=== PATIENT | male | born 1970 | race Caucasian/White ===

== ENCOUNTER 2018-11-15 11:46 | Day surgery (SDC) | payer OTHER ==
[2018-11-10 10:45] LABS: ABSOLUTE LYMPHOCYTES (AUTO) 1.7 10^3/uL (0.5-4.7); ABSOLUTE MONOCYTES (AUTO) 0.4 10^3/uL (0.1-1.4); ABSOLUTE NEUT (AUTO) 6.2 10^3/uL (1.7-8.2); BASOPHILS % (AUTO) 0.6 % (0-2); EOSINOPHILS % (AUTO) 0.5 % (0-6); HEMATOCRIT 43.3 % (37.9-51.0); LYMPHOCYTES % (AUTO) 20.2 % (13-45); MEAN CORPUSCULAR HEMOGLOBIN 31.8 pg (27.0-33.4); MEAN CORPUSCULAR HGB CONC 34.7 g/dL (32.0-36.0); MEAN CORPUSCULAR VOLUME 92 fl (80-97); MONOCYTES % (AUTO) 4.5 % (3-13); PLATELET COUNT 252 10^3/uL (150-450); RED BLOOD COUNT 4.72 10^6/uL (4.35-5.55); RED CELL DISTRIBUTION WIDTH 13.2 % (11.5-14.0); SEGMENTED NEUTROPHILS % (AUTO) 74.2 % (42-78); TOTAL CELLS COUNTED % (AUTO) 100 %; WHITE BLOOD COUNT 8.4 10^3/uL (4.0-10.5)
[2018-11-10 11:02] LABS: ANION GAP 5 (5-19); BLOOD UREA NITROGEN 23 mg/dL (7-20); CALCIUM 9.5 mg/dL (8.4-10.2); CARBON DIOXIDE 25 mmol/L (22-30); CHLORIDE 110 mmol/L (98-107); GLUCOSE 104 mg/dL (75-110); POTASSIUM 4.9 mmol/L (3.6-5.0); SODIUM 140.3 mmol/L (137-145)
--- NOTE | 2018-11-10 12:37 | RADIOLOGY REPORT (SQ) ---
EXAM DESCRIPTION: CHEST PA/LATERAL COMPLETED DATE/TIME: 11/10/2018 10:29 am REASON FOR STUDY: UNILATERAL INGUINAL HERNIA, W/O OBST OR GANGRENE, RECURRENT COMPARISON: None. EXAM PARAMETERS: NUMBER OF VIEWS: two views TECHNIQUE: Digital Frontal and Lateral radiographic views of the chest acquired. RADIATION DOSE: NA LIMITATIONS: none FINDINGS: LUNGS AND PLEURA: No opacities, masses or pneumothorax. No pleural effusion. MEDIASTINUM AND HILAR STRUCTURES: No masses or contour abnormalities. HEART AND VASCULAR STRUCTURES: Heart normal size. No evidence for failure. BONES: No acute findings. HARDWARE: None in the chest. OTHER: No other significant finding. IMPRESSION: NO SIGNIFICANT RADIOGRAPHIC FINDING IN THE CHEST. TECHNICAL DOCUMENTATION: JOB ID: [id number] [employer]- All Rights Reserved Reading location - IP/workstation name: [email or web address]
--- NOTE | 2018-11-12 00:09 | EKG REPORT ---
SEVERITY:- NORMAL ECG - SINUS RHYTHM : Confirmed by: Ihsan Donaldson 12-Nov-2018 00:08:49
[~2018-11-15 11:46] MED LIST: LACTATED RINGERS 1000 ML IV PRN; LIDOCAINE 0.5% INJ-PF (5 MG/ML) 50 ML SDV SUBCUT PRN
[2018-11-15] MEDS ORDERED: CEFAZOLIN 2 GM/D5W RTU 2 GM/50 ML RTUPB IV ONE (13:09)
[2018-11-15] MEDS ORDERED: BUPIVACAINE HCL 0.25% /EPINEPHRINE INJ/PF 30 ML SDV ONE (13:39)
[2018-11-15] MEDS ORDERED: FENTANYL CITRATE INJ/PF 250 MCG/5 ML AMPULE ONE (14:01)
[2018-11-15] MEDS ORDERED: MIDAZOLAM 2 MG/2 ML INJ ONE (14:01)
[2018-11-15] MEDS ORDERED: PROPOFOL INJ 200 MG/20 ML VIAL IV ONE (14:01)
[2018-11-15] MEDS ORDERED: DIPHENHYDRAMINE HCL 50 MG/ML VIAL IV PRN (14:38)
[2018-11-15] MEDS ORDERED: OXYCODONE-ACETAMINOPHEN 5-325 MG TABLET PO PRN ×3 (14:38→15:59)
[2018-11-15] MEDS ORDERED: MORPHINE SULFATE 10 MG/ML INJ IV PRN (14:38)
[2018-11-15] MEDS ORDERED: FENTANYL CITRATE INJ/PF 100 MCG/2 ML AMPUL IV PRN ×3 (14:38)
[2018-11-15] MEDS ORDERED: MEPERIDINE HCL/PF INJ 25 MG/1 ML DISP.SYRIN IV PRN (14:38)
[2018-11-15] MEDS ORDERED: PROMETHAZINE HCL INJ 25 MG/1 ML VIAL IV PRN ×2 (14:38)
[2018-11-15] MEDS ORDERED: HYDROMORPHONE HCL INJ/PF 2 MG/ML AMPULE ONE (15:05)
[2018-11-15] MEDS ORDERED: PROMETHAZINE HCL INJ 25 MG/1 ML VIAL ONE (15:56)
--- NOTE | 2018-11-15 15:57 | Operative Report ---
Nonrecallable Operative Report DATE OF SURGERY: 11/15/18 PREOPERATIVE DIAGNOSIS: right inguinal hernia POSTOPERATIVE DIAGNOSIS: bilateral inguinal hernia OPERATION: laparoscopic bilateral inguinal hernia repair SURGEON: TAWANNA ORTEGA ANESTHESIA: GA TISSUE REMOVED OR ALTERED: none COMPLICATIONS: none ESTIMATED BLOOD LOSS: min INTRAOPERATIVE FINDINGS: see dictation PROCEDURE: see h and p
--- NOTE | 2018-11-15 15:59 | Discharge Summary ---
Discharge Summary (SDC) - Discharge Final Diagnosis: bilateral inguinal hernia Date of Surgery: 11/15/18 Discharge Date: 11/15/18 Condition: Good Treatment or Instructions: ok to shower tomorrow no wt more than 10lbs for 3 wks. Discharge Diet: As Tolerated Discharge Activity: Activity As Tolerated, No Lifting Over 10 Pounds Report the Following to Your Physician Immediately: Shortness of Breath, Nausea, Vomiting, Increase in Pain, Unusual Bleeding - needs f/u appoint in 10-14 days
[2018-11-15] MEDS ORDERED: OXYCODONE-ACETAMINOPHEN 5-325 MG TABLET ONE (16:37)
[2018-11-15] MEDS ORDERED: NEOSTIGMINE METHYLSULFATE 10 MG/10 ML VIAL ONE (17:27)
[2018-11-15] MEDS ORDERED: ONDANSETRON HCL INJ/PF 4 MG/2 ML SDV ONE (17:27)
[2018-11-15] MEDS ORDERED: LIDOCAINE 2% INJ-PF (20 MG/ML) 2 ML AMPUL ONE (17:27)
[2018-11-15] MEDS ORDERED: GLYCOPYRROLATE 1 MG/5 ML VIAL ONE (17:27)
[2018-11-15] MEDS ORDERED: DEXAMETHASONE SOD PHOSPHATE INJ 4 MG/1 ML VIAL ONE (17:27)
[2018-11-15] MEDS ORDERED: ROCURONIUM BROMIDE INJ 50 MG/5 ML VIAL IV ONE (17:27)
[2018-11-15 17:56] VITALS: BP 125/91
--- NOTE | 2018-11-15 17:59 | OPERATIVE REPORT E ---
Operative Report NAME: YEN RAJAN II : 1970 AGE: 47Y DATE OF SURGERY: 11/15/2018 ROOM: PREOPERATIVE DIAGNOSIS: RIGHT INGUINAL HERNIA, RECURRENT. POSTOPERATIVE DIAGNOSIS: BILATERAL INGUINAL HERNIAS. OPERATION: Laparoscopic bilateral inguinal hernia repair SURGEON: TAWANNA ORTEGA M.D. PROCEDURE: The patient brought to the operating room in an awake, alert, and stable condition. Placed on the operating room table in the supine position. Induced under general anesthesia. Intubated. The abdomen was prepped and draped in the usual sterile manner for the procedure. A curvilinear infraumbilical incision was made with a 15 blade. Dissection was carried down through subcutaneous tissue with Bovie cautery. The fascia of the anterior rectus was identified just to the left of the umbilicus and then a transverse incision was made in the fascia. The muscle was retracted laterally and the space maker balloon was placed into the retroperitoneum on top of the posterior sheath. It was insufflated under direct vision. It was then removed and the working port was placed into that incision. Visualization was excellent. Two 5 mm infraumbilical ports were placed under direction vision. We first turned attention to the right side. We dissected the peritoneum and areolar tissue off the lateral abdominal wall identifying the transversalis muscle. We continued this inferiorly and medially until we identified the cord structures and the spermatic cord. Just medial to that the epigastric artery was identified and then we identified a previously placed mesh plug and Hesselbach's triangle. Just to the medial aspect of the mesh plug there was a defect with incarcerated fat within in it. This was dissected free. It was obvious that the patient had a recurrence at this position, and as a direct inguinal hernia recurrence. We also then identified the Vitor's ligament and anteriorly the rectus fascia. After we cleared the cord structures of the adherent peritoneum and mobilized the peritoneum proximally and posteriorly we then created a window underneath the cord structures with new piece of polypropylene mesh 6 cm long x 3 cm wide, slit down the side, placed it into the retroperitoneum, fixed it posteriorly to Vitor's ligament, anterior to the rectus fascia, laterally to transversalis fascia, and wrapped the cord structures with it. Covering both the Hesselbach's triangle and the internal ring. Once this was accomplished we turned to the left side. We mobilized the peritoneum and areolar tissue off the transversalis fascia laterally, continued that dissection inferiorly and medially to identify the cord structures. The cord structures had a sac on top of them that extended to the lateral aspect of the cord through the internal ring consistent with an indirect inguinal hernia. The peritoneum was dissected out of the internal ring and posteriorized proximally. We then identified the Vitor's ligament posteriorly and the rectus muscle anteriorly. There was no evidence of a direct inguinal hernia. We used a similar piece of polypropylene mesh 6 cm long x 3 cm wide with a slit down the side, that mesh was placed into the retroperitoneum, fixed posteriorly to the Vitor's ligament, anteriorly to the rectus abdominus muscle, and laterally to the transversalis muscle after wrapping the cord structures with the slit portion of the mesh. It was fixed to these structures with the AbsorbaTack. Once we had fixation of the mesh and coverage of the hernia defects we reduced the pneumoretroperitoneum under direction vision and allowed the peritoneum to come up against the mesh and removed the scope and ports. The fascial defects were closed with 0-Vicryl. The skin was closed with intracuticular 4-0 Biosyn. Steri-Strips completed the procedure. Estimated blood loss is less than 10 mL. Sponge and needle counts correct x2. The patient was awakened in the operating room, extubated, transferred to recovery in stable condition. No complications. DICTATING PHYSICIAN: TAWANNA ORTEGA M.D. [id number] PHY#: [id number] ID: [id number] JOB#: [id number] ACCT: [id number] cc:TAWANNA ORTEGA M.D. >
[2018-11-15] MEDS ORDERED: CEFAZOLIN 2 GM/D5W RTU 2 GM/50 ML RTUPB IV SCH (18:00)
== END 2018-11-15 16:53 | disposition home or self-care (01) ==
LOC: OROUT 11:46
PROVIDERS: ATTEND Surgery
DX: K40.20 Bilateral inguinal hernia, without obstruction or gangrene, not specified as recurrent (principal); M10.9 Gout, unspecified; F90.9 Attention-deficit hyperactivity disorder, unspecified type; G89.29 Other chronic pain; F17.210 Nicotine dependence, cigarettes, uncomplicated; Z79.899 Other long term (current) drug therapy
CPT/HCPCS: 93005; 36415; 85025; 80048; 71046; 93010; 00840; 49650; C1781; J2250; J3490 ×3; J1100; J3010; J2710; J1170; J2550; J2405; J2704; J0690; 840

== ENCOUNTER 2019-08-26 21:04 | Emergency (ER) | payer BC, OTHER ==
[2019-08-26 21:27] VITALS: BP 98/63
--- NOTE | 2019-08-26 22:08 | ER Document Report ---
ED Substance Abuse / Acc. OD - General Chief Complaint: ETOH Abuse Stated Complaint: ETOH ABUSE Time Seen by Provider: 08/26/19 21:59 Mode of Arrival: Medic Information source: Emergency Med Personnel Notes: Patient is a 48-year-old male presenting to the emergency department via EMS from home with apparent EtOH intoxication. Patient's family reports patient drank a pint of moonshine and became combative with his family on [place]. He then became combative when EMS arrived. EMS gave 5 mg of Versed and patient is now sleeping peacefully. TRAVEL OUTSIDE OF THE [place] IN LAST 30 DAYS: No - Related Data Allergies/Adverse Reactions: bee venom protein (honey bee) Allergy (Verified 08/26/19 21:27) naproxen Adverse Reaction (Verified 11/10/18 15:04) Past Medical History - General Information source: Emergency Med Personnel - Social History Smoking Status: Current Every Day Smoker Frequency of alcohol use: Heavy Family History: Reviewed & Not Pertinent Patient has suicidal ideation: No Patient has homicidal ideation: No - Past Medical History Cardiac Medical History: Denies: Hx Coronary Artery Disease, Hx Heart Attack, Hx Hypertension Pulmonary Medical History: Denies: Hx Asthma, Hx Bronchitis, Hx COPD, Hx Pneumonia Neurological Medical History: Reports: Hx Seizures - A CHILD, LAST SZ AT AGE 8 AGE. Denies: Hx Cerebrovascular Accident Musculoskeletal Medical History: Denies Hx Arthritis Past Surgical History: Reports: Hx Abdominal Surgery - right inguinal hernia repair 11/28 - Immunizations Hx Diphtheria, Pertussis, Tetanus Vaccination: Yes Review of Systems - Review of Systems -: Yes ROS unobtainable due to patient's medical condition Physical Exam - Vital signs Vitals: Temp 97.5 F 08/26/19 21:08 - Notes Notes: PHYSICAL EXAMINATION: GENERAL: Intoxicated, slurring his speech.. HEAD: Atraumatic, normocephalic. EYES: Pupils equal round and reactive to light, extraocular movements intact, sclera anicteric, conjunctiva are normal. ENT: Nares patent, oropharynx clear without exudates. Moist mucous membranes. NECK: Normal range of motion, supple without lymphadenopathy LUNGS: Breath sounds clear to auscultation bilaterally and equal. No wheezes rales or rhonchi. HEART: Regular rate and rhythm without murmurs ABDOMEN: Soft, nontender, nondistended abdomen. No guarding, no rebound. No masses appreciated. Musculoskeletal: Normal range of motion, no pitting or edema. No cyanosis. NEUROLOGICAL: Cranial nerves grossly intact. Normal sensory, motor exams PSYCH: Appropriate for situation. SKIN: Warm, Dry, normal turgor, no rashes or lesions noted. Course - Re-evaluation Re-evalutation: 08/26/19 22:50 Patient is now awake, sitting up in bed, yelling out at the nursing staff trying to direct them on what to do. He is not making clear sentences and is refusing to answer any questions. Nursing staff will continue to monitor. Will place on restraints if patient becomes a threat to himself or others. Unfortunately patient became very disrupted, screaming and yelling in the emergency department, shouting out obscenities. He was also trying to get out of the bed. He was given 400 mg of ketamine intramuscularly. He is now resting with eyes closed. He is on a court recording monitor. He is maintaining his own airway without difficulty. We will continue to monitor. Patient now awake, alert, apologetic of his behavior. He is ambulating with a steady gait. A family member who is sober is coming to pick him up. He will be discharged home at this time. - Vital Signs Vital signs: Temp Pulse Resp BP Pulse Ox 97.5 F 17 98/63 L 100 08/26/19 21:08 08/26/19 21:16 08/26/19 21:15 08/26/19 22:07 - Laboratory Result Diagrams: 08/26/19 21:14 08/26/19 21:14 Laboratory results interpreted by me: 08/26/19 21:14 Sodium 146.1 H Chloride 115 H Discharge - Discharge Clinical Impression: Intoxication, ETOH abuse Condition: Stable Disposition: HOME, SELF-CARE Additional Instructions: Please follow-up with primary care for follow-up. Please refrain from drinking alcohol in excess ever again.
[2019-08-26 22:29] LABS: ABSOLUTE EOSINOPHILS # (AUTO) 0.1 10^3/uL (0.0-0.6); ABSOLUTE LYMPHOCYTES (AUTO) 1.8 10^3/uL (0.5-4.7); ABSOLUTE MONOCYTES (AUTO) 0.3 10^3/uL (0.1-1.4); ABSOLUTE NEUT (AUTO) 6.4 10^3/uL (1.7-8.2); BASOPHILS % (AUTO) 0.2 % (0-2); EOSINOPHILS % (AUTO) 0.6 % (0-6); HEMATOCRIT 40.5 % (37.9-51.0); HEMOGLOBIN 14.3 g/dL (13.5-17.0); LYMPHOCYTES % (AUTO) 20.9 % (13-45); MEAN CORPUSCULAR HEMOGLOBIN 32.2 pg (27.0-33.4); MEAN CORPUSCULAR HGB CONC 35.2 g/dL (32.0-36.0); MEAN CORPUSCULAR VOLUME 91 fl (80-97); MONOCYTES % (AUTO) 3.7 % (3-13); PLATELET COUNT 251 10^3/uL (150-450); RED BLOOD COUNT 4.43 10^6/uL (4.35-5.55); RED CELL DISTRIBUTION WIDTH 13.5 % (11.5-14.0); SEGMENTED NEUTROPHILS % (AUTO) 74.6 % (42-78); TOTAL CELLS COUNTED % (AUTO) 100 %; WHITE BLOOD COUNT 8.6 10^3/uL (4.0-10.5)
[2019-08-26 22:46] LABS: ALCOHOL 222 mg/dL (NONE DETECTED); ALKALINE PHOSPHATASE 54 U/L (38-126); ANION GAP 7 (5-19); ASPARTATE AMINO TRANSFERASE 24 U/L (17-59); BILIRUBIN,TOTAL 0.2 mg/dL (0.2-1.3); BLOOD UREA NITROGEN 17 mg/dL (7-20); CALCIUM 8.8 mg/dL (8.4-10.2); CARBON DIOXIDE 24 mmol/L (22-30); CHLORIDE 115 mmol/L (98-107); GLUCOSE 103 mg/dL (75-110); POTASSIUM 3.8 mmol/L (3.6-5.0); TOTAL PROTEIN 6.5 g/dL (6.3-8.2)
[2019-08-26] MEDS ORDERED: KETAMINE HCL INJ 500 MG/10 ML VIAL IM ONE (22:51)
== END 2019-08-27 04:09 | disposition home or self-care (01) ==
LOC: ER 21:04
DX: F10.129 Alcohol abuse with intoxication, unspecified (principal); F17.200 Nicotine dependence, unspecified, uncomplicated; Z91.030 Bee allergy status
CPT/HCPCS: 99284; 96372; 36415; 80307; 85025; 80053; J3490